=== PATIENT | female | born 2000 | race Caucasian/White ===

== ENCOUNTER 2019-12-08 00:07 | Outpatient (CLI) | payer MEDICAID, SELFPAY ==
[2019-12-08 00:16] VITALS: BMI 29.9
[2019-12-08 00:17] VITALS: TEMP 36.8
[2019-12-08 00:24] VITALS: BP 115/76; PULSE 80
[2019-12-08 00:56] VITALS: BP 112/72; PULSE 72
[2019-12-08 01:13] LABS: Bilirubin Urine Neg (NEGATIVE); Blood Urine Neg (Negative); Glucose Urine UA Norm (Normal); Ketones Urine Negative (Negative); Leukocyte Esterase Urine Negative (Negative); Nitrate Urine Negative (Negative); Protein Urine Neg (Negative); Urine Appearance Clear (CLEAR); Urine Color Straw (Yellow); Urobilinogen Urine Norm (Negative); pH Urine 7 (5-7)
[2019-12-08 01:14] LABS: Actim Prom Negative
[2019-12-08 01:16] VITALS: BP 112/71; PULSE 70
[2019-12-08 01:20] LABS: Add Urine Microscopic? YES
[2019-12-08 01:23] LABS: Add Urine Culture? No; Bacteria Urine TRACE; RBC Urine RARE /hpf (0-2); Squamous Epithelial Cell Urine 0-4 (0-5); WBC Urine RARE /hpf (0-5)
[2019-12-08 01:36] VITALS: BP 106/71; PULSE 75
== END 2019-12-08 01:55 | disposition home or self-care (01) ==
LOC: OPOB 00:15 → OBGYN 00:59
PROVIDERS: Family Provider Family Medicine; Visit Provider Family Medicine
DX: O26.899 Other specified pregnancy related conditions, unspecified trimester (principal); Z3A.00 Weeks of gestation of pregnancy not specified; R10.9 Unspecified abdominal pain
CPT/HCPCS: 59025; 81001; 81003; 84112; 99211

== ENCOUNTER 2019-12-12 09:51 | Inpatient (IN) | payer MEDICAID, SELFPAY ==
[2019-12-12] VITALS (24 sets, daily range): BP systolic 0–144; BP diastolic 0–83; PULSE 62–93; RESP 17–20; TEMP 36.8; BMI 30.9
[2019-12-12 11:01] LABS: Basophils % 0.2 %; Eosinophils # 0.2 10^3/uL (0.0-0.8); Eosinophils % 1.7 %; Hematocrit 36.3 % (37.0-47.0); Hemoglobin 11.9 g/dL (11.5-15.3); Lymphocytes # 1.8 10^3/uL (0.8-4.8); Lymphocytes % 17.3 %; Mean Corpuscular HGB Conc 32.8 g/dL (30.0-36.0); Mean Corpuscular Volume 85.4 fL (81-99); Mean Platelet Volume 11.7 fL (7.4-10.4); Monocytes # 0.7 10^3/uL (0.2-0.9); Monocytes % 6.3 %; Neutrophils # 7.6 10^3/uL (1.8-7.7); Neutrophils % 73.7 %; Nucleated Red Blood Cells % 0 %; Platelet Count 128 10^3/cmm (130-400); Red Blood Count 4.25 10^6/uL (4.1-5.3); Red Cell Distribution Width 12.7 % (12.1-15.1); White Blood Count 10.3 10^3/uL (4.0-10.0)
--- NOTE | 2019-12-12 13:30 | PC.NURSE ---
pt refusing IV fluids at this time. will accept post delivery IV pitocin
--- NOTE | 2019-12-12 14:04 | PM.DELIVERY ---
 Delivery Note: Date of delivery: December 12, 2019 This 19-year-old 2 now para 2 female at 39 weeks and 6 days gestation had spontaneous onset of labor this morning and was having a bloody show. She called OB department and was asked to come in. On arrival, she was found to be actively in labor and 5 cm dilated. She dilated to approximately 9 cm dilatation with a bulging bag of water at which time she underwent amniotomy and moderate amount of clear fluid was obtained. She then pretty quickly went to complete cervical dilatation and delivered by spontaneous vaginal delivery a healthy, viable male infant weighing 7 pounds 13 ounces. time was 1344. The infant's mouth and nose were suctioned at the perineum followed by delivery of the shoulders and the remainder the without problems. There is no episiotomy and no lacerations. The placenta delivered spontaneously at 1346. Infant cried lustily at and had Apgars of 8 and 9 at 1 and 5 minutes respectively. Estimated blood loss approximately 108 mL. Presently both mother and infant are doing well. Pre-Delivery Course: This patient was followed through her course by this physician. Maternal blood type was O+ with antibody screen negative. Hepatitis B, hepatitis C, RPR and HIV were negative. Rubella was immune and group B strep was negative. Delivery: Spontaneous vaginal delivery. A&P Assessment and plan (1) Normal spontaneous vaginal delivery: Patient tolerated labor and delivery well. She will be followed for routine postdelivery care. She and her significant other have discussed the possibility of going home this evening. This may be allowed if things are going well. Status: Acute Coding Level of Care Code Acute Light Fixture Servicer for Chg Fwd Diagnoses Normal spontaneous vaginal delivery O80
[2019-12-12] MEDS: oxytocin 30 UNIT/500 ML BAG 600 UNIT IV (14:05)
[2019-12-12] MEDS: benzocaine-menthol 78 gm Canister 1 SPRAY TOPICAL (15:55)
[2019-12-12] MEDS: lanolin oint 7 gm 1 APPLIC TOPICAL (15:55)
--- NOTE | 2019-12-12 16:16 | PC.NURSE ---
pt up to bathroom without difficulty. void 200mL. josé miguel care performed. pad and gown changed. pt back to bed. sandwich and juice given.
--- NOTE | 2019-12-17 03:06 | P.DS_ITS ---
Discharge Providers NATURAL RESOURCE OFFICER Date of Admission: 12/12/19 09:51 Date of Discharge: 12/17/19 Attending Provider at Admission: Dion Dickinson MD Attending Provider at Discharge: Dion Dickinson MD Diagnoses at Discharge Discharge Diagnosis (1) Normal spontaneous vaginal delivery: Status: Acute Reason for Visit Reason for Visit: Reason For Visit: Abdominal pain Hospital Course Hospital Course: Patient delivered by spontaneous vaginal delivery a healthy, viable male infant without problems. The patient received no anesthesia and had no lacerations which required repair. She was ambulating well and tolerating a regular diet. The was breast-feeding well and the patient desired discharge home. She was passing just mild lochia with no significant clots or other risk factors. Discharge Summary: As patient was doing well and she and her spouse desired discharge secondary to the coronavirus epidemic a decision was made to allow them to be discharged home. They understand potential risks of going home early. They will return quickly for any significant bleeding or other issues or problems. The patient will follow-up with this physician in 6 weeks and as needed. Information Peripartum Data: Delivery Method: Vaginal Physical Exam Narrative: EXAM NARRATIVE: Repeat physical examination was not accomplished before discharge. Discharge Data Vitals: Last Vital Signs Temp 98.2 F 12/12/19 18:45 Pulse 77 12/12/19 18:45 Resp 17 12/12/19 18:45 BP 112/51 12/12/19 18:45 Discharge Plan Discharge Patient Disposition: Home, Self-Care Prescriptions: Continued PNV [id number] fumarate-FA [] 28 mg iron- 800 mcg Tablet 1 tab PO DAILY RF: 0 Discharge Orders: Discharge Order (Routine); Ordered 12/12/19 Ordered By: Dion Dickinson Referrals: Dion Dickinson MD [Family Provider] - 6 Weeks (Please keep scheduled appointment on Monday, January 24, 2020 at 10:30 AM for mom's check up. ) Discharge Diet: Advance as tolerated Discharge Activity: Limit activity as instructed Patient Instructions: OB Discharge Report, OB Food/Drug Interaction Guide, OB Home Care Instructions, OB Care at Home, OB Home Care, OB Proud Parent Packet, OB Vaginal Deliveries Discharge Date/Time: 12/12/19 18:45 Discharge Attestations NATURAL RESOURCE OFFICER Time Spent in Discharge Care*: less than 30 min Coding Level of Care Code Acute Outside Sales Representative for Chg Fwd Diagnoses Normal spontaneous vaginal delivery O80
== END 2019-12-12 18:45 | disposition home or self-care (01) | DRG 807 ==
LOC: OPOB 10:00 → OBGYN 10:01 → OPOB 14:26
PROVIDERS: Admitting Provider Family Medicine; Family Provider Family Medicine; Visit Provider Family Medicine
DX: O80 Encounter for full-term uncomplicated delivery (principal); Z37.0 Single live birth; Z3A.39 39 weeks gestation of pregnancy
CPT/HCPCS: 12345; 36415; 59025; 59409; 85025; 99211

== ENCOUNTER → 2021-11-09 09:19 | Outpatient (BNVA) | payer MEDICAID, SELFPAY | PROVIDERS: Family Provider Family Medicine; Visit Provider Family Medicine | DX: R10.9 Unspecified abdominal pain (principal) | CPT/HCPCS: 81000; 87086 ==

== ENCOUNTER → 2021-12-13 10:25 | Outpatient (BNVA) | payer MEDICAID, SELFPAY | PROVIDERS: Family Provider Family Medicine; Referring Provider Family Medicine; Visit Provider Internal Medicine | DX: M54.9 Dorsalgia, unspecified (principal); R70.0 Elevated erythrocyte sedimentation rate; Z11.59 Encounter for screening for other viral diseases; Z11.1 Encounter for screening for respiratory tuberculosis | CPT/HCPCS: 72202; 73120; 99204 ==

== ENCOUNTER → 2021-12-23 13:42 | Outpatient (BNVA) | payer MEDICAID, SELFPAY | PROVIDERS: Family Provider Family Medicine; Visit Provider Internal Medicine | DX: M54.9 Dorsalgia, unspecified (principal); R70.0 Elevated erythrocyte sedimentation rate; M53.3 Sacrococcygeal disorders, not elsewhere classified; Z79.899 Other long term (current) drug therapy | CPT/HCPCS: 36415; 85651; 86140; 99214 ==

== ENCOUNTER → 2022-03-17 13:29 | Outpatient (BNVA) | payer MEDICAID, SELFPAY | PROVIDERS: Family Provider Family Medicine; Visit Provider Internal Medicine | DX: R10.9 Unspecified abdominal pain (principal); M54.9 Dorsalgia, unspecified | CPT/HCPCS: 72040; 72072; 72100; 81003; 99214 ==

== ENCOUNTER 2022-03-31 14:27 | Outpatient (RCR) | payer MEDICAID, SELFPAY | END 2022-04-13 23:59 | disposition home or self-care (01) | LOC: SPT 14:27 | PROVIDERS: PCP Family Medicine; Visit Provider Internal Medicine | DX: M53.3 Sacrococcygeal disorders, not elsewhere classified (principal); R70.0 Elevated erythrocyte sedimentation rate; M54.9 Dorsalgia, unspecified; G89.29 Other chronic pain | CPT/HCPCS: 97032; 97110; 97161 ==

== ENCOUNTER 2022-04-14 06:00 | Outpatient (RCR) | payer MEDICAID, SELFPAY | END 2022-05-13 23:59 | disposition home or self-care (01) | LOC: SPT 06:00 | PROVIDERS: PCP Family Medicine; Visit Provider Internal Medicine | DX: M53.3 Sacrococcygeal disorders, not elsewhere classified (principal); R70.0 Elevated erythrocyte sedimentation rate; M54.9 Dorsalgia, unspecified; G89.29 Other chronic pain | CPT/HCPCS: 97032; 97110 ==

== ENCOUNTER 2022-05-14 06:00 | Outpatient (RCR) | payer MEDICAID, SELFPAY | END 2022-06-13 23:59 | disposition home or self-care (01) | LOC: SPT 06:00 | PROVIDERS: PCP Family Medicine; Visit Provider Internal Medicine | DX: M53.3 Sacrococcygeal disorders, not elsewhere classified (principal); R70.0 Elevated erythrocyte sedimentation rate; M54.9 Dorsalgia, unspecified; G89.29 Other chronic pain | CPT/HCPCS: 97032; 97110 ==

== ENCOUNTER 2022-06-14 06:00 | Outpatient (RCR) | payer MEDICAID, SELFPAY | END 2022-07-13 23:59 | disposition home or self-care (01) | LOC: SPT 06:00 | PROVIDERS: PCP Family Medicine; Visit Provider Internal Medicine | DX: M53.3 Sacrococcygeal disorders, not elsewhere classified (principal); R70.0 Elevated erythrocyte sedimentation rate; M54.9 Dorsalgia, unspecified; G89.29 Other chronic pain | CPT/HCPCS: 97110; 97530 ==

== ENCOUNTER 2022-07-12 11:56 | Outpatient (CLI) | payer MEDICAID, SELFPAY ==
--- NOTE | 2022-07-12 12:15 | USCV_ITS ---
Franny Hay Age: 22 Gender: F : 2000 Exam Date: 07/12/2022 12:25 Ordering Phys: Rachele Iniguez MD ([email or web address]) Technologist: JAILYN Exam Location: [facility] Indication: CHEST PAIN AND SHORTNESS OF BREATH BP: 101 / 65 HR: 57 Rhythm: Sinus Technical Quality: Adequate MEASUREMENTS (Male / Female) Normal Values 2D ECHO LV Ejection Fraction MOD 2C 65.0 % LV Ejection Fraction 2C AL 63.7 % LA Diameter 3.1 cm LA Width 3.3 cm LA Height 4.2 cm RA Width 4.0 cm RA Height 4.8 cm Aorta at Sinotubular Diameter 2.1 cm IVC Diameter 1.8 cm M-MODE Aortic Annulus Diameter 2.3 cm LA Ao Ratio MM 1.4 MV E Point Septal Separation 0.4 cm DOPPLER AV Peak Velocity 145.3 cm/s LVOT Peak Velocity 107.0 cm/s MV Peak Velocity 120.0 cm/s MV Area PHT 4.3 cm squared Mitral E to A Ratio 1.8 MV E' Velocity 58.0 cm/s Mitral E to MV E' Ratio 5.1 Mitral E to LV E' Lateral Ratio 4.3 Mitral E to LV E' Septal Ratio 6.5 TR Peak Velocity 287.1 cm/s TR Peak Gradient 33.0 mmHg TR Mean Velocity 233.1 cm/s TR Mean Gradient 22.6 mmHg TR Velocity Time Integral 86.4 cm TV Peak E Velocity 42.0 cm/s Right Atrial Pressure 3.0 mmHg Pulmonary Artery Systolic Pressu 36.0 mmHg PV Peak Velocity 89.0 cm/s RV Acceleration Time 0.2 s RV Ejection Time 0.4 s RV AcT/ET 0.4 FINDINGS Left Ventricle Normal left ventricular size, systolic function and wall thickness, with no regional wall motion abnormalities. Left ventricular ejection fraction is estimated at 65 %. Normal diastolic function for age. Right Ventricle Normal right ventricular size and systolic function. Normal right ventricular systolic pressure. Right Atrium Normal right atrial size. Left Atrium Normal left atrial size. Mitral Valve Structurally normal mitral valve. No mitral valve stenosis. Trace to mild mitral valve regurgitation. Aortic Valve Structurally normal trileaflet aortic valve. No aortic valve stenosis. No aortic valve regurgitation. Tricuspid Valve Structurally normal tricuspid valve. No tricuspid valve stenosis. Trace to mild tricuspid valve regurgitation. Pulmonic Valve Structurally normal pulmonic valve. No pulmonary valve stenosis. Trace pulmonary valve regurgitation. Pericardium No pericardial effusion. Aorta Normal size aortic root and proximal ascending aorta. IVC Normal IVC dimension with >50% respiratory change of the inferior vena cava. CONCLUSIONS 1. Normal left ventricular size, systolic function and wall thickness, with no regional wall motion abnormalities. Left ventricular ejection fraction is estimated at 65 %. Normal diastolic function for age. 2. Trace to mild mitral and tricuspid valve regurgitation. 3. No prior similar studies to compare. Rachele Iniguez MD (Electronically Signed) Final Date: 17 July 2022 18:40 S
== END 2022-07-12 11:57 | disposition home or self-care (01) ==
LOC: RAD 11:58
PROVIDERS: PCP Family Medicine; Visit Provider Internal Medicine Cardiovascular Disease
DX: R07.9 Chest pain, unspecified (principal); R06.02 Shortness of breath; R00.2 Palpitations; I08.1 Rheumatic disorders of both mitral and tricuspid valves
CPT/HCPCS: 93306

== ENCOUNTER 2022-10-11 13:06 | Outpatient (CLI) | payer MEDICAID, SELFPAY ==
--- NOTE | 2022-10-11 13:15 | US_ITS ---
WS: [id number] LIMITED OBSTETRICAL ULTRASOUND HISTORY: -FIRST TRIMESTER COMPARISON: None available. Presentation: Transverse, head on maternal LEFT. Cervix: Closed and normal length. Placenta: Posterior and extends within 2 cm at the internal cervical os. Increased soft tissue junior automation engineer ior placenta is probably a [place] Lu. This can be further evaluated on follow-up imaging. Grade: 0 HEART: FHR of 147 BPM. measurements: BPD = 2.9 cm = 15w2d; HC = 11.4 cm = 15w4d; AC = 9.0 cm = 15w2d; FL = 1.7 cm = 15w1d; Normal amniotic fluid. EFW: 118 g; AGA by ultrasound: 15w2d LIZZY by ultrasound: 04/02/2023 US/US OB <= 14 weeks fetus [id number] IMPRESSION: 1. Single intrauterine gestation of 15 weeks 2 days with an EDC of 04/02/2023. 2. Normal cardiac activity. 3. Suspect [place] Lu posterior to the placenta. This can be further evalua perri during anatomic screening survey.
== END 2022-10-11 13:07 | disposition home or self-care (01) ==
LOC: RAD 13:10
PROVIDERS: PCP Family Medicine; Visit Provider Family Medicine
DX: Z34.90 Encounter for supervision of normal pregnancy, unspecified, unspecified trimester (principal)
CPT/HCPCS: 76801

== ENCOUNTER 2022-11-21 15:10 | Outpatient (CLI) | payer MEDICAID, SELFPAY ==
[2022-11-21 15:10] VITALS: BMI 28.3
[2022-11-21 15:54] VITALS: RESP 16
[2022-11-21 15:59] VITALS: BP 115/61; PULSE 94
[2022-11-21 16:19] VITALS: BP 109/60; PULSE 81
[2022-11-21 16:39] VITALS: BP 107/57; PULSE 73
[2022-11-21 16:59] VITALS: BP 107/58; PULSE 75
[2022-11-21 16:59] LABS: Bilirubin Urine Neg (Negative); Blood Urine Neg (Negative); Glucose Urine UA Norm (Normal); Ketones Urine Negative (Negative); Leukocyte Esterase Urine Negative (Negative); Nitrate Urine Negative (Negative); Protein Urine Neg (Negative); Urine Appearance Clear (CLEAR); Urine Color Yellow (Yellow); Urobilinogen Urine Neg (Negative); pH Urine 6 (5-7)
[2022-11-21 17:15] VITALS: BP 107/58; PULSE 75; RESP 16; TEMP 36.4
[2022-11-21 17:27] LABS: Add Urine Culture? No
== END 2022-11-21 17:18 | disposition home or self-care (01) ==
LOC: OPOB 15:48 → OBGYN 15:53
PROVIDERS: PCP Family Medicine; Visit Provider Family Medicine
DX: O26.899 Other specified pregnancy related conditions, unspecified trimester (principal); R10.9 Unspecified abdominal pain; Z3A.00 Weeks of gestation of pregnancy not specified
CPT/HCPCS: 81001; 99211

== ENCOUNTER 2022-11-21 15:15 | Outpatient (CLI) | payer MEDICAID, SELFPAY ==
[2022-11-21 15:39] VITALS: BP 123/60; PULSE 105; BMI 28.3
[2022-11-21 18:13] LABS: Add Urine Culture? No; Bilirubin Urine Neg (Negative); Blood Urine Neg (Negative); Glucose Urine UA Norm (Normal); Ketones Urine Negative (Negative); Leukocyte Esterase Urine Negative (Negative); Nitrate Urine Negative (Negative); Protein Urine Neg (Negative); Urine Appearance Clear (CLEAR); Urine Color Yellow (Yellow); Urobilinogen Urine Neg (Negative); pH Urine 6 (5-7)
== END 2022-11-21 15:16 | disposition home or self-care (01) ==
LOC: OPOB 15:15 → OBGYN 15:16
PROVIDERS: Family Provider Family Medicine; Visit Provider Family Medicine
DX: O47.9 False labor, unspecified (principal); Z3A.00 Weeks of gestation of pregnancy not specified
CPT/HCPCS: 81001

== ENCOUNTER 2023-04-03 16:33 | Inpatient (IN) | payer MEDICAID, SELFPAY ==
[2023-04-03] VITALS (18 sets, daily range): BP systolic 95–125; BP diastolic 53–80; PULSE 62–105; RESP 16; TEMP 36.3–37.1; BMI 31.9
[2023-04-03 14:19] LABS: Basophils % 0.3 %; Eosinophils # 0.1 10^3/uL (0.0-0.8); Eosinophils % 0.9 %; Hematocrit 34.3 % (37.0-47.0); Lymphocytes # 1.5 10^3/uL (0.8-4.8); Lymphocytes % 18.6 %; Mean Corpuscular HGB Conc 32.1 g/dL (30.0-36.0); Mean Corpuscular Hemoglobin 26.2 pg (28.0-34.0); Mean Corpuscular Volume 81.7 fl (81-99); Mean Platelet Volume 11.8 fL (7.4-10.4); Monocytes # 0.6 10^3/uL (0.2-0.9); Monocytes % 7.8 %; Neutrophils # 5.73 10^3/uL (1.8-7.7); Nucleated Red Blood Cells % 0 %; Platelet Count 124 10^3/cmm (130-400); Red Cell Distribution Width 14.6 % (12.1-15.1)
--- NOTE | 2023-04-03 17:00 | PM.OBGYHP ---
Providers/Chief Complaint Admitting Physician: Abhijit Castorena MD Primary Care Provider: Dion Dickinson MD Chief Complaint: contractions HPI SENIOR SOURCING MANAGER History of Present Illness Franny Hay is a 22 year old G3, P2 female that presents at 39 weeks 3 days with contractions. Patient was keila since early this morning and was consistently having contractions every 3 to 4 minutes. Upon arrival this was the same when she was placed on the toco. Has not had any complications during . labs were unremarkable. Patient was GBS negative. Present Details : 3 Para: 2 Labs Rubella: Immune RPR: Negative GBS: Negative Review of Systems General: Reports: 10 or more systems reviewed and unremarkable except in HPI and below Const: Denies: fever(s) or chills Eyes: Denies: change in vision Card: Denies: chest pain Resp: Denies: dyspnea GI: Denies: nausea or vomiting Musc: Reports: back pain, joint pain and joint stiffness Skin/Breast: Denies: rash Medications/Allergies Allergies Allergy/AdvReac Type Severity Reaction Status Date / Time No Known Allergies Allergy Verified 06/14/22 08:47 PFSH SENIOR SOURCING MANAGER PFSH: Medical History (Updated 04/03/23 @ 17:03 by Abhijit Castorena MD) Anemia Back pain ESR raised History of vaginal delivery Surgical History (Updated 05/10/22 @ 13:41 by Rachele Iniguez MD) S/P inguinal hernia repair Family History Father Hyperlipidemia Other Cancer Lupus Social History Smoking and tobacco status: never smoked Vitals/I&O/Wt Last Vital Signs Temp 97.3 F L 04/03/23 15:01 Pulse 72 04/03/23 15:14 BP 106/55 04/03/23 15:14 O2 Del Method Room Air 04/03/23 14:16 Weight last 48 hrs Weight 87.09 kg Physical Exam Const: COMMON NORMALS: no acute distress, average body habitus, healthy appearing and alert Resp: COMMON NORMALS: normal respiratory effort and No retractions GI: OTHER: Gravid Extremity: COMMON NORMALS: no clubbing, cyanosis or edema Neuro: COMMON NORMALS: moves all extremities, no focal motor deficits and no sensory deficits noted Psych: COMMON NORMALS: mental status grossly normal and cooperative Skin: GENERAL SKIN EXAM: no rashes or lesions noted Data 04/03/23 13:52 A&P Assessment and plan (1) Term : Patient attends for vaginal delivery with no epidural. Continue supportive care and labor management. Attestations Medical Necessity Statement*: Anticipate 1 midnight stay. Coding Level of Care Code Acute Code for Chg Fwd Diagnoses Term Z34.90
[2023-04-03] MEDS: dextrose 5%-lactated ringers 1,000 ML 125 ML IV (20:22)
[2023-04-03] MEDS: oxytocin 30 UNIT/500 ML BAG 600 UNIT IV (20:22)
--- NOTE | 2023-04-03 20:36 | PM.DELIVERY ---
Delivery Note: Date of delivery: April 03, 2023 Pre-delivery diagnoses: Term intrauterine Post-delivery diagnoses: Term intrauterine , viable infant male Procedure: Spontaneous vaginal delivery Op report anesthesia: None Estimated blood loss (mL): 150 Pre-Delivery Course: This is a 22-year-old that presented at 39 weeks and 3 days for contractions. Patient progressed throughout the day as expected. Labor management was unremarkable. Delivery: Once patient was almost complete the patient was placed into normal lithotomy position. Contractions continued to cause baby descent until she was completely dilated. Once dilated the patient pushed until it was delivered. Shoulder was delivered without incident followed by the rest of the . It was placed onto mother's abdomen and delayed cord clamping was performed. Placenta was then delivered without incident. Review of the perineum showed 2 small periurethral tears with right side bleeding. A single simple interrupted suture was placed with 3-0 Vicryl after the area was then excised with with 1 cc lidocaine. Uterus was firm and bleeding was controlled at the end of the procedure. Post-Delivery Status: Stable History History History 3 Term 3 0 Miscarriages/Ectopic 0 Living Children 3 A&P Assessment and plan (1) Vaginal delivery: Proceed with routine care. Coding Level of Care Code Acute Code for Chg Fwd Diagnoses Vaginal delivery O80
[2023-04-03] MEDS: lidocaine 2% INJ 20 mL INJECTION (21:43)
[2023-04-04 00:30] VITALS: BP 110/70; PULSE 68; RESP 16; TEMP 36.7; O2SAT 98
[2023-04-04 01:30] VITALS: BP 101/59; PULSE 63; RESP 16; TEMP 36.4
[2023-04-04] MEDS: benzocaine-menthol 78 gm Canister 1 SPRAY TOPICAL (04:26)
[2023-04-04 04:30] VITALS: BP 103/68; PULSE 76; RESP 16; TEMP 36.4; O2SAT 97
--- NOTE | 2023-04-04 07:10 | PC.NURSE ---
In reference to missed post delivery vital signs throughout the night, the patient was educated by the nurse multiple times to leave blood pressure cuff on and notify when needed to be removed to go to the bathroom or to get up. Several times upon entering the room this nurse found the blood pressure cuff removed, patient was reeducated each time and blood pressure cuff was replaced.
[2023-04-04] MEDS: docusate sodium 100 mg Capsule PO (08:09)
[2023-04-04 08:30] LABS: Hematocrit 31.4 % (37.0-47.0); Hemoglobin 10.1 g/dL (11.5-15.3); Mean Corpuscular HGB Conc 32.2 g/dL (30.0-36.0); Mean Corpuscular Volume 80.7 fl (81-99); Mean Platelet Volume 11.9 fL (7.4-10.4); Platelet Count 115 10^3/cmm (130-400); Red Blood Count 3.89 10^6/uL (4.1-5.3); Red Cell Distribution Width 14.6 % (12.1-15.1); White Blood Count 7.4 10^3/uL (4.0-10.0)
[2023-04-04 10:00] VITALS: BP 97/62; PULSE 87; RESP 15; O2SAT 97
[2023-04-04] MEDS: ibuprofen 800 mg tablet PO (12:18)
[2023-04-04 15:41] VITALS: BP 116/73; PULSE 60; RESP 15; O2SAT 98
[2023-04-05 00:13] VITALS: BP 116/73; PULSE 60; RESP 15; O2SAT 98
--- NOTE | 2023-04-05 12:02 | P.DS_ITS ---
Discharge Providers PLATE GRAINER APPRENTICE Date of Admission: 04/03/23 16:33 Date of Discharge: 04/04/23 Attending Provider at Admission: Abhijit Castorena MD Attending Provider at Discharge: Abhijit Castorena MD Primary Care Provider: Dion Dickinson MD Diagnoses at Discharge Discharge Diagnosis (1) Vaginal delivery: Status: Acute Reason for Visit Reason for Visit: contractions Hospital Course Hospital Course This is a 22-year-old that presented with contractions. The patient progressed and delivered a viable infant male vaginally without difficulty. care was unremarkable. Information Peripartum Data: Infant Delivery Method: Vaginal History History History 3 Term 3 0 Miscarriages/Ectopic 0 Living Children 3 Discharge Data Studies Completed and Pending Laboratory Results WBC 7.4 10^3/uL (4.0-10.0) 04/04/23 08:14 RBC 3.89 10^6/uL (4.1-5.3) L 04/04/23 08:14 Hgb 10.1 g/dL (11.5-15.3) L 04/04/23 08:14 Hct 31.4 % (37.0-47.0) L 04/04/23 08:14 MCV 80.7 fl (81-99) L 04/04/23 08:14 MCH 26.0 pg (28.0-34.0) L 04/04/23 08:14 MCHC 32.2 g/dL (30.0-36.0) 04/04/23 08:14 RDW 14.6 % (12.1-15.1) 04/04/23 08:14 Plt Count 115 10^3/cmm (130-400) L 04/04/23 08:14 MPV 11.9 fL (7.4-10.4) H 04/04/23 08:14 Neut % (Auto) 72.0 % 04/03/23 13:52 Lymph % (Auto) 18.6 % 04/03/23 13:52 [place] % (Auto) 7.8 % 04/03/23 13:52 Eos % (Auto) 0.9 % 04/03/23 13:52 Baso % (Auto) 0.3 % 04/03/23 13:52 Neut # (Auto) 5.73 10^3/uL (1.8-7.7) 04/03/23 13:52 Lymph # (Auto) 1.5 10^3/uL (0.8-4.8) 04/03/23 13:52 [place] # (Auto) 0.6 10^3/uL (0.2-0.9) 04/03/23 13:52 Eos # (Auto) 0.1 10^3/uL (0.0-0.8) 04/03/23 13:52 Baso # (Auto) 0.0 10^3/uL (0.0-0.1) 04/03/23 13:52 Nucleated RBC % (auto) 0 % 04/03/23 13:52 Nucleated RBCs # 0.0 /100WBC 04/03/23 13:52 Vitals Last Vital Signs Temp 97.6 F 04/04/23 04:30 Pulse 60 04/05/23 00:13 Resp 15 04/05/23 00:13 BP 116/73 04/05/23 00:13 Pulse Ox 98 04/05/23 00:13 O2 Del Method Room Air 04/04/23 15:41 Discharge Plan Discharge Patient Disposition: Home Discharge Orders: Discharge Order (Routine); Ordered 04/04/23 Ordered By: Abhijit Castorena Referrals: Abhijit Casotrena MD [Physician] - 05/15/23 9:25 am Patient Instructions: Depression (DC), Bleeding (DC), Preeclampsia and Eclampsia After Delivery (GEN), Hemorrhage (DC), OB Discharge Report, OB Food/Drug Interaction Guide, OB Care at Home, Opioid Safety, OB Home Care, OB Vaginal Deliveries Discharge Attestations PLATE GRAINER APPRENTICE Time Spent in Discharge Care*: less than 30 min Coding Level of Care Code Acute Code for Chg Fwd Diagnoses Vaginal delivery O80
== END 2023-04-04 21:00 | disposition home or self-care (01) | DRG 807 ==
LOC: OPOB 16:33 → OBGYN 16:33
PROVIDERS: Admitting Provider Family Medicine; PCP Family Medicine; Visit Provider Family Medicine
DX: O71.82 Other specified trauma to perineum and vulva (principal); Z37.0 Single live birth; Z3A.39 39 weeks gestation of pregnancy
CPT/HCPCS: 36415; 59025; 59409; 85025; 85027; 98960; 99211; J2590; J7121

== ENCOUNTER 2023-11-29 08:41 | Outpatient (CLI) | payer MEDICAID, SELFPAY ==
--- NOTE | 2023-11-29 08:46 | MR_ITS ---
WS: [id number] MRI LUMBAR SPINE NONCONTRAST HISTORY: CHRONIC LOW BACK PAIN COMPARISON: None available. TECHNIQUE: Sagittal and axial multisequence imaging is submitted. Normal lumbar alignment with no compression fractures or marrow edema. Disc spaces and vertebral body heights are well-preserved. Conus terminates normally at L1-2 disc level. Mild annular disc bulging at T12-L1. No stenosis or nerve root contact. L1-L2: Normal. L2-L3: Normal. L3-L4: Mild bilateral facet joint arthritis and ligamentum flavum hypertrophy. No stenosis. L4-L5: Mild bilateral ligamentum flavum and facet arthritis. No stenosis. L5-S1: Minimal disc bulging. No stenosis. No retroperitoneal abnormality. IMPRESSION: 1. No acute lumbar spine fracture. 2. No significant central or foraminal stenosis. 3. Mild facet joint arthritis at L3-4 through L5-S1. No stenosis.
== END 2023-11-29 08:42 | disposition home or self-care (01) ==
LOC: RAD 08:42
PROVIDERS: PCP Family Medicine; Visit Provider Family Medicine
DX: M54.50 Low back pain, unspecified (principal); M47.816 Spondylosis without myelopathy or radiculopathy, lumbar region
CPT/HCPCS: 72148